=== PATIENT | male | born 1955 | race Caucasian/White ===

== ENCOUNTER → 2020-11-01 | Outpatient (CLI) | payer OTHER | LOC: RAD 09:30 | DX: R91.1 Solitary pulmonary nodule (principal); N28.1 Cyst of kidney, acquired; R07.81 Pleurodynia | CPT/HCPCS: Q9967 ==

== ENCOUNTER → 2021-11-15 | Outpatient (CLI) | payer MEDICARE | LOC: RAD 08:54 | DX: R91.1 Solitary pulmonary nodule (principal); R59.0 Localized enlarged lymph nodes ==

== ENCOUNTER → 2022-02-14 | Outpatient (CLI) | payer MEDICARE | LOC: RAD 09:45 | DX: R59.0 Localized enlarged lymph nodes (principal) | CPT/HCPCS: Q9967 ==

== ENCOUNTER → 2024-07-13 | Outpatient (CLI) | payer MEDICARE | LOC: RAD 10:40 | DX: M79.89 Other specified soft tissue disorders (principal); M79.605 Pain in left leg ==